=== PATIENT | female | born 1950 | race Native Hawaiian/Other Pacific Islander ===

== ENCOUNTER 2017-04-18 12:42 | Inpatient (IN) | payer BC, MEDICARE ==
--- NOTE | 2017-04-18 14:54 | C.PDOC ---
History Of Present Illness Patient is a 67 y/o female who presents to the ED with a complaint of epigastric pain to the right and left upper quadrants that began approximately 30 minutes after a hearty brunch. Patient describes pain as burning that radiates up into the esophagus and notes belching and feeling bloated subsequent to brunch. Symptoms have since subsided. Patient denies vomiting but admits to experiencing similar episodes since gallbladder removal 2 years ago; most recent episode was 5 days ago where patient did vomit. Patient takes Omeprazole every morning; last endoscopy was 2 years ago with gallbladder removal. Admits to normal bowel movements every other day and normal stool. Denies fever, URI symptoms, CP, or SOB. Time Seen by Provider: 04/18/17 13:57 Chief Complaint (Nursing): Abdominal Pain History Per: Patient History/Exam Limitations: no limitations Onset/Duration Of Symptoms: Hrs (symptoms began this morning subsequent to eating brunch), Days (Hx of episodes over last 2 years, most recent 5 days ago) Location Of Pain/Discomfort: RUQ, Epigastric, LUQ Radiation Of Pain To:: Other (esophagus) Quality Of Discomfort: Burning Associated Symptoms: Nausea. denies: Fever, Vomiting (most recent episode included vomiting), Chest Pain Last Bowel Movement: Today Recent travel outside of the [place]: No Additional History Per: Patient Past Medical History Reviewed: Historical Data, Nursing Documentation, Vital Signs Vital Signs: Last Vital Signs Temp 97.7 F 04/18/17 12:52 Pulse 64 04/18/17 12:52 Resp 16 04/18/17 12:52 BP 147/72 04/18/17 12:52 Pulse Ox 100 04/18/17 20:26 - Medical History PMH: Anemia, Gastritis, Osteoporosis Surgical History: Cholecystectomy (2 years ago), Endoscopy (2 years ago) - [facility] Procedures INJECT/INFUSE NEC (05/04/14) Family History: States: No Known Family Hx - Social History Hx Alcohol Use: No Hx Substance Use: No - Immunization History Hx Tetanus Toxoid Vaccination: Yes Hx Influenza Vaccination: No Hx Pneumococcal Vaccination: Yes Review Of Systems Constitutional: Negative for: Fever, Chills ENT: Negative for: Nose Discharge, Nose Congestion, Throat Pain Cardiovascular: Negative for: Chest Pain, Palpitations Respiratory: Negative for: Shortness of Breath Gastrointestinal: Positive for: Nausea, Abdominal Pain (epigastric, right and left upper quadrants). Negative for: Vomiting Physical Exam - Physical Exam Appears: Well, Non-toxic, No Acute Distress Skin: Normal Color, Warm, Dry Head: Atraumatic, Normacephalic Oral Mucosa: Moist Chest: Symmetrical Cardiovascular: Rhythm Regular, No Murmur Respiratory: Normal Breath Sounds, No Rales, No Rhonchi, No Stridor Gastrointestinal/Abdominal: Soft, No Tenderness Extremity: Normal ROM (x4) Neurological/Psych: Oriented x3, Normal Speech, Normal Cognition ED Course And Treatment - Laboratory Results Result Diagrams: 04/18/17 15:46 04/18/17 15:46 Lab Interpretation: Abnormal (Elevated LFTs and Bili) O2 Sat by Pulse Oximetry: 100 (room air) Pulse Ox Interpretation: Normal - Radiology CXR: Interpreted by Me, Viewed By Me CXR Interpretation: Yes: No Acute Disease Progress Note: CT scan of abdomen and pelvis ordered.Status post cholecystectomy. Notable amount of biliary air. Correlate with history. Associated biliary. ductal dilatation Reevaluation Time: 20:26 Reassessment Condition: Unchanged - Physician Consult Information Time Consulting Physician Contacted: 20:27 Physician Contacted: Jose Alberto Viveros Outcome Of Conversation: Patient to be admitted for GI evaluation and ERCP Medical Decision Making Medical Decision Making: Plan: EKG, CXR, and blood work ordered. Pepcid administered. Disposition - Disposition Disposition: HOSPITALIZED Disposition Time: 20:27 Condition: STABLE - POA Present On Arrival: None - Clinical Impression Clinical Impression: Abdominal pain, Dilated intrahepatic bile duct - Scribe Statement The provider has reviewed the documentation as recorded by the Scribmarilin Deras All medical record entries made by the Geeibmarilin were at my direction and personally dictated by me. I have reviewed the chart and agree that the record accurately reflects my personal performance of the history, physical exam, medical decision making, and the department course for this patient. I have also personally directed, reviewed, and agree with the discharge instructions and disposition.
--- NOTE | 2017-04-18 15:42 | RAD ---
PROCEDURE: CHEST RADIOGRAPH, 1 VIEW HISTORY: Abdominal pain. COMPARISON: Comparison made with prior chest radiograph dated 09/08/2011 FINDINGS: LUNGS: Clear. PLEURA: No pneumothorax or pleural fluid seen. CARDIOVASCULAR: Normal. OSSEOUS STRUCTURES: No significant abnormalities. VISUALIZED UPPER ABDOMEN: No gross free intraperitoneal air seen under the diaphragmatic surfaces OTHER FINDINGS: None. IMPRESSION: No acute infiltrates.
[2017-04-18 15:54] LABS: BASO % 0.5 % (0.0-2.0); EOS % 0.2 % (0.0-4.0); HEMATOCRIT 36.2 % (34.0-47.0); LYMPH # 0.6 K/uL (1.0-4.3); LYMPH % 6.8 % (20.0-40.0); MEAN CELL VOLUME 90.7 fL (81.0-99.0); MEAN CORPUSCULAR HGB CONC 33.1 g/dL (33.0-37.0); MEAN PLATELET VOLUME 6.8 fL (7.2-11.7); MONO # 0.7 K/uL (0.0-0.8); MONO % 7.6 % (0.0-10.0); PLATELET COUNT 282 K/uL (130-400); RED CELL DISTRIBUTION WIDTH 13.6 % (11.5-14.5); WHITE BLOOD COUNT 8.7 K/uL (4.8-10.8)
[2017-04-18 15:59] LABS: CHLORIDE 102 mmol/L (98-107); POTASSIUM 3.6 mmol/L (3.6-5.2); SODIUM 141 mmol/L (132-148)
[2017-04-18 16:01] LABS: ALB/GLOB RATIO 1.1 (1.0-2.1); AST/SGOT 400 U/L (14-36); BILIRUBIN,TOTAL 1.4 mg/dL (0.2-1.3); CARBON DIOXIDE 30 mmol/L (22-30); GFR AFRICAN-AMERICAN > 60
[2017-04-18 16:02] LABS: ALKALINE PHOSPHATASE 91 U/L (38-126); ALT/SGPT 214 U/L (9-52); BLOOD UREA NITROGEN 11 mg/dL (7-17); CALCIUM 9.3 mg/dl (8.6-10.4); GLUCOSE,RANDOM 79 mg/dL (65-105)
[2017-04-18] MEDS ORDERED: Iohexol 240 (50 ml) PO ONE (16:04)
[2017-04-18] MEDS ORDERED: Iohexol 240 (50 ml) ONE (16:36)
[2017-04-18 17:00] LABS: LARGE PLATELETS PRESENT; NEUTROPHIL 89 % (50-75); TOTAL CELLS COUNTED 100
[2017-04-18] MEDS ORDERED: Iodixanol 320 MG/ML 100 ML BOTTLE IV ONE (18:21)
--- NOTE | 2017-04-18 19:56 | CT ---
EXAM: CT Abdomen and Pelvis With Intravenous Contrast CLINICAL HISTORY: 67 years old, female; Pain; Abdominal pain; Prior surgery; Surgery type: Gall bladder removed; Additional info: Adominal pain with elevated lfts S/P lynnette TECHNIQUE: Axial computed tomography images of the abdomen and pelvis with intravenous contrast. All CT scans at this facility use one or more dose reduction techniques, viz.: automated exposure control; ma/kV adjustment per patient size (including targeted exams where dose is matched to indication; i.e. head); or iterative reconstruction technique. Coronal and sagittal reformatted images were created and reviewed. CONTRAST: 100 mL of [id number] administered intravenously. COMPARISON: No relevant prior studies available. FINDINGS: Status post cholecystectomy. Notable amount of biliary air. Correlate with history. Associated biliary ductal dilatation. The liver, spleen, pancreas and adrenal glands demonstrate no acute abnormalities. The kidneys are symmetric with no evidence of hydronephrosis. Subcentimeter hypoattenuating focus in the left kidney, too small to characterize. Atherosclerosis. Evidence of minimal hiatal hernia. No bowel obstruction. Left colon is collapsed, limiting its evaluation. Areas of apparent bowel wall prominence appear to be due incomplete distention. Minimal inflammation cannot be excluded. Appendix not visualized. Evidence of L3 hemangioma. IMPRESSION: Status post cholecystectomy. Notable amount of biliary air. Correlate with history. Associated biliary ductal dilatation. Please see additional details/findings as above. Some of the above findings may warrant followup evaluation.
--- NOTE | 2017-04-18 22:46 | CP.PCM.HP ---
History of Present Illness - History of Present Illness History of Present Illness: Patient is a 67 y/o female who presents to the ED with a complaint of epigastric pain to the right and left upper quadrants that began approximately 30 minutes after a hearty brunch. Patient describes pain as burning that radiates up into the esophagus and notes belching and feeling bloated subsequent to brunch. Symptoms have since subsided. Patient denies vomiting but admits to experiencing similar episodes since gallbladder removal 2 years ago; most recent episode was 5 days ago where patient did vomit. Patient takes Omeprazole every morning; last endoscopy was 2 years ago with gallbladder removal. Admits to normal bowel movements every other day and normal stool. Denies fever, URI symptoms, CP, or SOB. Present on Admission - Present on Admission Any Indicators Present on Admission: No Past Patient History - Infectious Disease Hx of Infectious Diseases: None - Past Social History Smoking Status: Never Smoked - HEMATOLOGICAL/ONCOLOGICAL Hx Anemia: Yes - MUSCULOSKELETAL/RHEUMATOLOGICAL Hx Osteoporosis: Yes - GASTROINTESTINAL Hx Gastritis: Yes - PSYCHIATRIC Hx Substance Use: No - SURGICAL HISTORY Hx Cholecystectomy: Yes (2 years ago) - ANESTHESIA Hx Anesthesia: Yes Hx Anesthesia Reactions: No Meds Allergies/Adverse Reactions: Allergies Allergy/AdvReac Type Severity Reaction Status Date / Time No Known Allergies Allergy Verified 04/18/17 12:50 Results - Vital Signs Recent Vital Signs: Last Vital Signs Temp 99.0 F 04/18/17 21:49 Pulse 64 04/18/17 21:49 Resp 20 04/18/17 21:49 BP 156/74 H 04/18/17 21:49 Pulse Ox 99 04/18/17 21:49 - Labs Result Diagrams: 04/19/17 09:08 04/19/17 09:08 Labs: Laboratory Results - last 24 hr 04/18/17 04/18/17 15:46 15:46 WBC 8.7 RBC 3.99 Hgb 12.0 Hct 36.2 MCV 90.7 MCH 30.0 MCHC 33.1 RDW 13.6 Plt Count 282 MPV 6.8 L Neut % (Auto) 84.9 H Lymph % (Auto) 6.8 L [place] % (Auto) 7.6 Eos % (Auto) 0.2 Baso % (Auto) 0.5 Neut # 7.4 H Lymph # 0.6 L [place] # 0.7 Eos # 0.0 Baso # 0.0 Neutrophils % (Manual) 89 H Lymphocytes % (Manual) 8 L Monocytes % (Manual) 3 Platelet Estimate Normal Large Platelets Present Sodium 141 Potassium 3.6 Chloride 102 Carbon Dioxide 30 Anion Gap 13 BUN 11 Creatinine 0.5 L Est GFR ( Amer) > 60 Est GFR (Non-Af Amer) > 60 Random Glucose 79 Calcium 9.3 Total Bilirubin 1.4 H AST 400 H ALT 214 H Alkaline Phosphatase 91 Troponin I < 0.0120 Total Protein 8.0 Albumin 4.2 Globulin 3.8 Albumin/Globulin Ratio 1.1 Lipase 241
[2017-04-18] MEDS: metroNIDAZOLE IV 500 mg/100 ml 500 MG/100 ML BAG IVPB SCH (23:00)
[2017-04-18] MEDS ORDERED: cefTRIAXone IV 1 gm in Dextros 50 ML IVPB SCH (23:00)
[2017-04-18] MEDS: Dextrose 5%/0.45% NS 1,000 ML IV SCH (23:01)
[2017-04-19] MEDS: metroNIDAZOLE IV 500 mg/100 ml 500 MG/100 ML BAG IVPB SCH ×3 (06:15→21:12)
--- NOTE | 2017-04-19 08:17 | CP.PCM.CON ---
<Ariana Lofton - Last Filed: 04/19/17 10:03> History of Present Illness - History of Present Illness History of Present Illness: GI Fellow PGY4 Consult Note This is a 67 y/o female with a pmhx of gastritis on omeprazole 20mg daily, cholecystitis and choledocholithiasis s/p ERCP and cholecystectomy in August 2016. She is now presenting to the ER with complaints of acute onset epigastric pain radiating to RUQ/LUQ that began 60 minutes after eating lunch. Patient describes pain as initially a burning sensation that spread into her throat and mouth with associated belching and bloated. Patient denies vomiting but reports experiencing similar episodes sporadically since cholecystectomy in August. She states that the most recent episode was 5 days ago where patient did vomit. She takes Omeprazole every morning. Pt reports that in August she was in [place], [place] where she had and ERCP done initially for CBD stone followed by cholecystectomy due to cholelithiasis. Pt states her symptoms are better this morning after getting pain medication. Pt reports her face is red and swollen after IV abx, she has received Flagyl so far and denies prior allergies. Denies fever, chills, nausea or vomiting. ROS: A 12pt ROS was obtained and was negative except as above. Pmhx: As stated in HPI PsHx: Cholecystectomy and ERCP in August 2016. FHx: liver disease from etoh in brother SHx: Denies alcohol, tobacco, or illict drug use Past Patient History - Infectious Disease Hx of Infectious Diseases: None - Past Medical History & Family History Past Medical History?: Yes - Past Social History Smoking Status: Never Smoked - CARDIAC Hx Cardiac Disorders: No - PULMONARY Hx Respiratory Disorders: No - NEUROLOGICAL Hx Neurological Disorder: No - HEENT Hx HEENT Problems: No - RENAL Hx Chronic Kidney Disease: No - ENDOCRINE/METABOLIC Hx Endocrine Disorders: No - HEMATOLOGICAL/ONCOLOGICAL Hx Blood Disorders: Yes Hx Anemia: Yes - INTEGUMENTARY Hx Dermatological Problems: No - MUSCULOSKELETAL/RHEUMATOLOGICAL Hx Falls: No - GASTROINTESTINAL Hx Gastrointestinal Disorders: Yes Hx Gall Bladder Disease: Yes Hx Gastritis: Yes - GENITOURINARY/GYNECOLOGICAL Hx Genitourinary Disorders: No - PSYCHIATRIC Hx Substance Use: No - SURGICAL HISTORY Hx Surgeries: Yes Hx Cholecystectomy: Yes (2 years ago) Other/Comment: Cesarian x1 - ANESTHESIA Hx Anesthesia: Yes Hx Anesthesia Reactions: No Hx Malignant Hyperthermia: No Has any member of the family had a problem w/ anesthesia?: No Meds Allergies/Adverse Reactions: Allergies Allergy/AdvReac Type Severity Reaction Status Date / Time No Known Allergies Allergy Verified 04/18/17 12:50 - Medications Medications: Current Medications Enoxaparin Sodium (Lovenox) 40 mg SC DAILY [facility] Famotidine (Pepcid) 20 mg IVP Q12 [facility] Dextrose/Sodium Chloride (Dextrose 5%/0.45% Ns 1000 Ml) 1,000 mls @ 90 mls/hr IV .Q11H7M [facility] Last Admin: 04/18/17 23:01 Dose: 90 mls/hr Metronidazole (Flagyl) 500 mg in 100 mls @ 100 mls/hr IVPB Q8 [facility] Last Admin: 04/19/17 06:15 Dose: 100 mls/hr Ceftriaxone Sodium (Rocephin Iv 1 Gm Duplex) 50 mls @ 100 mls/hr IVPB Q24H [facility] Last Admin: 04/18/17 23:01 Dose: 100 mls/hr Morphine Sulfate (Morphine) 2 mg SC Q4H PRN PRN Reason: Pain, moderate (4-7) Physical Exam - Constitutional Appears: Non-toxic, No Acute Distress - Head Exam Head Exam: ATRAUMATIC, NORMAL INSPECTION, NORMOCEPHALIC - Eye Exam Eye Exam: EOMI, Normal appearance, PERRL Pupil Exam: PERRL - ENT Exam ENT Exam: Mucous Membranes Moist, Normal Exam - Neck Exam Neck exam: Positive for: Normal Inspection - Respiratory Exam Respiratory Exam: Clear to Auscultation Bilateral, NORMAL BREATHING PATTERN - Cardiovascular Exam Cardiovascular Exam: RRR, +S1, +S2 - GI/Abdominal Exam GI & Abdominal Exam: Normal Bowel Sounds, Soft. absent: Distended, Organomegaly , Tenderness - Rectal Exam Rectal Exam: Deferred - Extremities Exam Extremities exam: Positive for: full ROM, normal inspection - Back Exam Back exam: NORMAL INSPECTION - Neurological Exam Neurological exam: Alert, Oriented x3 - Psychiatric Exam Psychiatric exam: Normal Mood - Skin Skin Exam: Dry, Erythema, Intact, Rash, Warm Additional comments: Pt's face is red and slightly swollen with rash on chest Results - Vital Signs Recent Vital Signs: Last Vital Signs Temp 99.1 F 04/18/17 23:49 Pulse 68 04/18/17 23:49 Resp 20 10/21/17 23:49 BP 132/71 04/18/17 23:49 Pulse Ox 98 04/18/17 23:49 - Labs Result Diagrams: 04/19/17 09:08 04/19/17 09:08 Labs: Laboratory Results - last 24 hr 04/18/17 04/18/17 15:46 15:46 WBC 8.7 RBC 3.99 Hgb 12.0 Hct 36.2 MCV 90.7 MCH 30.0 MCHC 33.1 RDW 13.6 Plt Count 282 MPV 6.8 L Neut % (Auto) 84.9 H Lymph % (Auto) 6.8 L [place] % (Auto) 7.6 Eos % (Auto) 0.2 Baso % (Auto) 0.5 Neut # 7.4 H Lymph # 0.6 L [place] # 0.7 Eos # 0.0 Baso # 0.0 Neutrophils % (Manual) 89 H Lymphocytes % (Manual) 8 L Monocytes % (Manual) 3 Platelet Estimate Normal Large Platelets Present Sodium 141 Potassium 3.6 Chloride 102 Carbon Dioxide 30 Anion Gap 13 BUN 11 Creatinine 0.5 L Est GFR ( Amer) > 60 Est GFR (Non-Af Amer) > 60 Random Glucose 79 Calcium 9.3 Total Bilirubin 1.4 H AST 400 H ALT 214 H Alkaline Phosphatase 91 Troponin I < 0.0120 Total Protein 8.0 Albumin 4.2 Globulin 3.8 Albumin/Globulin Ratio 1.1 Lipase 241 Assessment & Plan - Assessment and Plan (Free Text) Assessment: This is a 67yF presenting with sudden onset of abdominal pain after food consumption. 1. Transaminitis 2. Abdominal pain 3. s/p Cholecystectomy in August 4. s/p ERCP for reported choledocholithiasis Plan: -Continue supportive care with anti-emetics, pain control -Elevated LFTs will order Hepatitis panel and autoimmune workup -CTA/P mentions CBD dilation/pneumobilia which is common after recent ERCP/ cholecystectomy -Concern for possible CBD sludge vs stone, plan for EUS +/- ERCP tomorrow -Discussed procedure with pt who is agreeable and understands risks/benefits -Clear liquid diet today -NPO after midnight -Recommend stopping antibiotics as pt is afebrile, denies fevers, chills and no leukocytes on admission, also pt has developed a rash and maybe allergic to abx therapy -Monitor LFTs -Will continue to follow pt closely <Gera Madden - Last Filed: 04/19/17 15:45> Meds - Medications Medications: Current Medications Enoxaparin Sodium (Lovenox) 40 mg SC DAILY [facility] Last Admin: 04/19/17 10:27 Dose: 40 mg Famotidine (Pepcid) 20 mg IVP Q12 [facility] Last Admin: 04/19/17 10:27 Dose: 20 mg Dextrose/Sodium Chloride (Dextrose 5%/0.45% Ns 1000 Ml) 1,000 mls @ 90 mls/hr IV .Q11H7M [facility] Last Admin: 04/19/17 10:01 Dose: 90 mls/hr Metronidazole (Flagyl) 500 mg in 100 mls @ 100 mls/hr IVPB Q8 [facility] Last Admin: 04/19/17 14:00 Dose: 100 mls/hr Aztreonam 2 gm/ Sodium (Chloride) 100 mls @ 200 mls/hr IVPB Q8H [facility] Morphine Sulfate (Morphine) 2 mg SC Q4H PRN PRN Reason: Pain, moderate (4-7) Results - Vital Signs Recent Vital Signs: Last Vital Signs Temp 98.7 F 04/19/17 12:35 Pulse 69 04/19/17 09:23 Resp 20 04/19/17 09:23 BP 114/60 04/19/17 09:23 Pulse Ox 97 04/19/17 09:23 - Labs Result Diagrams: 04/19/17 09:08 04/19/17 09:08 Labs: Laboratory Results - last 24 hr 04/18/17 04/18/17 04/19/17 15:46 15:46 09:08 WBC 8.7 4.3 L D RBC 3.99 3.93 Hgb 12.0 12.0 Hct 36.2 36.2 MCV 90.7 91.9 MCH 30.0 30.4 MCHC 33.1 33.1 RDW 13.6 13.3 Plt Count 282 286 MPV 6.8 L 7.0 L Neut % (Auto) 84.9 H Lymph % (Auto) 6.8 L [place] % (Auto) 7.6 Eos % (Auto) 0.2 Baso % (Auto) 0.5 Neut # 7.4 H Lymph # 0.6 L [place] # 0.7 Eos # 0.0 Baso # 0.0 Neutrophils % (Manual) 89 H Lymphocytes % (Manual) 8 L Monocytes % (Manual) 3 Platelet Estimate Normal Large Platelets Present PT INR Sodium 141 Potassium 3.6 Chloride 102 Carbon Dioxide 30 Anion Gap 13 BUN 11 Creatinine 0.5 L Est GFR ( Amer) > 60 Est GFR (Non-Af Amer) > 60 Random Glucose 79 Calcium 9.3 Iron TIBC % Saturation Total Bilirubin 1.4 H AST 400 H ALT 214 H Alkaline Phosphatase 91 Troponin I < 0.0120 Total Protein 8.0 Albumin 4.2 Globulin 3.8 Albumin/Globulin Ratio 1.1 Lipase 241 IgG 04/19/17 04/19/17 04/19/17 09:08 09:08 09:08 WBC RBC Hgb Hct MCV MCH MCHC RDW Plt Count MPV Neut % (Auto) Lymph % (Auto) [place] % (Auto) Eos % (Auto) Baso % (Auto) Neut # Lymph # [place] # Eos # Baso # Neutrophils % (Manual) Lymphocytes % (Manual) Monocytes % (Manual) Platelet Estimate Large Platelets PT 12.0 INR 1.1 Sodium 136 Potassium 3.9 Chloride 102 Carbon Dioxide 25 Anion Gap 13 BUN 7 Creatinine 0.5 L Est GFR ( Amer) > 60 Est GFR (Non-Af Amer) > 60 Random Glucose 95 Calcium 8.8 Iron 144 TIBC 281 % Saturation 51 Total Bilirubin 1.7 H AST 557 H D ALT 474 H D Alkaline Phosphatase 114 Troponin I Total Protein 6.6 Albumin 4.0 Globulin 2.6 Albumin/Globulin Ratio 1.6 Lipase IgG 04/19/17 04/19/17 09:08 09:08 WBC RBC Hgb Hct MCV MCH MCHC RDW Plt Count MPV Neut % (Auto) Lymph % (Auto) [place] % (Auto) Eos % (Auto) Baso % (Auto) Neut # Lymph # [place] # Eos # Baso # Neutrophils % (Manual) Lymphocytes % (Manual) Monocytes % (Manual) Platelet Estimate Large Platelets PT INR Sodium Potassium Chloride Carbon Dioxide Anion Gap BUN Creatinine Est GFR ( Amer) Est GFR (Non-Af Amer) Random Glucose Calcium Iron TIBC % Saturation 51 Total Bilirubin AST ALT Alkaline Phosphatase Troponin I Total Protein Albumin Globulin Albumin/Globulin Ratio Lipase IgG 1153.6 Attending/Attestation - Attestation I have personally seen and examined this patient.: Yes I have fully participated in the care of the patient.: Yes I have reviewed all pertinent clinical information: Yes Notes (Text): 04/19/17 15:44 67 year old female with h/o recent cholecystectomy, h/o choledocholithiais presenting with abdominal pain and elevated lfts along with biliary dilation. 1. Abdominal pain 2. Elevated LFTs 3. Dilation of the common bile duct Plan: -suspect retained CBD stone -recommend EUS +/- ERCP tomorrow -NPO after MN -no signs/sx of cholangitis -recommend eval for other causes of abnormal LFTs as above
[2017-04-19 09:13] LABS: HEMATOCRIT 36.2 % (34.0-47.0); MEAN CELL VOLUME 91.9 fL (81.0-99.0); MEAN CORPUSCULAR HEMOGLOBIN 30.4 pg (27.0-31.0); MEAN CORPUSCULAR HGB CONC 33.1 g/dL (33.0-37.0); RED CELL DISTRIBUTION WIDTH 13.3 % (11.5-14.5)
[2017-04-19 09:17] LABS: WHITE BLOOD COUNT 4.3 K/uL (4.8-10.8)
[2017-04-19 09:19] LABS: INR 1.1
[2017-04-19 09:27] LABS: CHLORIDE 102 mmol/L (98-107); SODIUM 136 mmol/L (132-148)
[2017-04-19 09:28] LABS: POTASSIUM 3.9 mmol/L (3.6-5.2)
[2017-04-19 09:30] LABS: ALB/GLOB RATIO 1.6 (1.0-2.1); ALKALINE PHOSPHATASE 114 U/L (38-126); ALT/SGPT 474 U/L (9-52); AST/SGOT 557 U/L (14-36); BILIRUBIN,TOTAL 1.7 mg/dL (0.2-1.3); BLOOD UREA NITROGEN 7 mg/dL (7-17); CARBON DIOXIDE 25 mmol/L (22-30); GFR AFRICAN-AMERICAN > 60; GLUCOSE,RANDOM 95 mg/dL (65-105); TOTAL PROTEIN 6.6 g/dL (6.3-8.3)
[2017-04-19 09:31] LABS: CALCIUM 8.8 mg/dl (8.6-10.4)
[2017-04-19 09:35] LABS: IRON 144 ug/dL (37-170)
[2017-04-19] MEDS: Dextrose 5%/0.45% NS 1,000 ML IV SCH ×2 (10:01→21:12)
[2017-04-19] MEDS: Enoxaparin 40 mg Syringe SC SCH (10:27)
[2017-04-19] MEDS: Aztreonam 2 GM in Sodium Chloride 0.9% 100 ML IVPB SCH (16:46)
--- NOTE | 2017-04-19 20:58 | CP.PCM.PN ---
Subjective - Date & Time of Evaluation Date of Evaluation: 04/19/17 Time of Evaluation: 15:15 - Subjective Subjective: Pt states her abdominal pain is better this morning after getting pain medication. Pt reports her face is red and swollen after IV abx, she has received Flagyl so far and denies prior allergies. Denies fever, chills, nausea or vomiting. Objective - Vital Signs/Intake and Output Vital Signs (last 24 hours): Temp Pulse Resp BP Pulse Ox 98.6 F 61 20 118/66 98 04/19/17 15:00 04/19/17 15:00 04/19/17 15:00 04/19/17 15:00 04/19/17 15:00 Intake and Output: 04/19/17 04/20/17 18:59 06:59 Intake Total 1100 Balance 1100 - Medications Medications: Current Medications Enoxaparin Sodium (Lovenox) 40 mg SC DAILY [facility] Last Admin: 04/19/17 10:27 Dose: 40 mg Famotidine (Pepcid) 20 mg IVP Q12 [facility] Last Admin: 04/19/17 10:27 Dose: 20 mg Dextrose/Sodium Chloride (Dextrose 5%/0.45% Ns 1000 Ml) 1,000 mls @ 90 mls/hr IV .Q11H7M [facility] Last Admin: 04/19/17 10:01 Dose: 90 mls/hr Metronidazole (Flagyl) 500 mg in 100 mls @ 100 mls/hr IVPB Q8 [facility] Last Admin: 04/19/17 14:00 Dose: 100 mls/hr Aztreonam 2 gm/ Sodium (Chloride) 100 mls @ 200 mls/hr IVPB Q8H [facility] Last Admin: 04/19/17 16:46 Dose: 200 mls/hr Morphine Sulfate (Morphine) 2 mg SC Q4H PRN PRN Reason: Pain, moderate (4-7) - Labs Labs: 04/19/17 09:08 04/19/17 09:08 PT 12.0 SECONDS (9.7-12.2) 04/19/17 09:08 INR 1.1 04/19/17 09:08 - Constitutional Appears: No Acute Distress - Head Exam Head Exam: ATRAUMATIC, NORMAL INSPECTION, NORMOCEPHALIC - Eye Exam Eye Exam: EOMI, Normal appearance, PERRL Pupil Exam: NORMAL ACCOMODATION, PERRL - Respiratory Exam Respiratory Exam: Clear to Ausculation Bilateral, NORMAL BREATHING PATTERN - Cardiovascular Exam Cardiovascular Exam: REGULAR RHYTHM, +S1, +S2. absent: Murmur - GI/Abdominal Exam GI & Abdominal Exam: Soft, Normal Bowel Sounds. absent: Tenderness - Rectal Exam Rectal Exam: Deferred Assessment and Plan (1) Choledochitis Status: Acute (2) Abdominal pain Status: Acute (3) Dilated intrahepatic bile duct Status: Acute - Assessment and Plan (Free Text) Assessment: 67 year old female with h/o recent cholecystectomy, h/o choledocholithiais presenting with abdominal pain and elevated lfts along with biliary dilation. 1. Abdominal pain 2. Elevated LFTs 3. Dilation of the common bile duct Plan: -suspect retained CBD stone -recommend EUS +/- ERCP tomorrow -NPO after MN -no signs/sx of cholangitis -recommend eval for other causes of abnormal LFTs as above
[2017-04-20] MEDS: Aztreonam 2 GM in Sodium Chloride 0.9% 100 ML IVPB SCH ×3 (00:01→16:20)
[2017-04-20] MEDS ORDERED: DiphenhydrAMINE 50 mg/ml Inj IVP ONE (06:12)
[2017-04-20] MEDS: Dextrose 5%/0.45% NS 1,000 ML IV SCH ×2 (06:38→18:57)
[2017-04-20] MEDS: metroNIDAZOLE IV 500 mg/100 ml 500 MG/100 ML BAG IVPB SCH ×3 (06:39→21:27)
[2017-04-20 07:24] LABS: HEMATOCRIT 36.8 % (34.0-47.0); MEAN CELL VOLUME 91.3 fL (81.0-99.0); MEAN CORPUSCULAR HEMOGLOBIN 30.1 pg (27.0-31.0); MEAN PLATELET VOLUME 7.5 fL (7.2-11.7); RED CELL DISTRIBUTION WIDTH 13.2 % (11.5-14.5); WHITE BLOOD COUNT 3.1 K/uL (4.8-10.8)
[2017-04-20 07:35] LABS: INR 1.1
[2017-04-20 07:49] LABS: CHLORIDE 104 mmol/L (98-107); SODIUM 135 mmol/L (132-148)
[2017-04-20 07:50] LABS: POTASSIUM 3.4 mmol/L (3.6-5.2)
[2017-04-20 07:52] LABS: ALB/GLOB RATIO 1.5 (1.0-2.1); ALKALINE PHOSPHATASE 115 U/L (38-126); ALT/SGPT 359 U/L (9-52); AST/SGOT 222 U/L (14-36); BILIRUBIN,TOTAL 1.3 mg/dL (0.2-1.3); BLOOD UREA NITROGEN 6 mg/dL (7-17); CARBON DIOXIDE 22 mmol/L (22-30); GFR AFRICAN-AMERICAN > 60; GLUCOSE,RANDOM 88 mg/dL (65-105); TOTAL PROTEIN 6.1 g/dL (6.3-8.3)
[2017-04-20 07:53] LABS: CALCIUM 8.5 mg/dl (8.6-10.4)
[2017-04-20] MEDS ORDERED: Potassium Chloride 10 mEq ER Tab PO STA (08:46)
[2017-04-20] MEDS: Enoxaparin 40 mg Syringe SC SCH (09:12)
[2017-04-20] MEDS ORDERED: Indomethacin 50 MG Suppository PR ONE (11:55)
[2017-04-20] MEDS ORDERED: Propofol 10 mg/ml Inj (20 ML) ONE (11:56)
[2017-04-20] MEDS ORDERED: Rocuronium 10 mg/ml (5 ml) ONE (12:11)
[2017-04-20] MEDS ORDERED: Neostigmine Methylsulfate 3mg/3ml Syringe IV ONE (12:41)
--- NOTE | 2017-04-20 12:53 | CARD ---
APPROVED REPORT EKG Measurement Heart [id number] IL 178P-7 [id number] <Conclusion> Normal sinus rhythm Normal ECG
[2017-04-20 16:24] VITALS: RESP 20
--- NOTE | 2017-04-20 16:40 | RAD ---
PROCEDURE: Intraoperative fluoroscopy HISTORY: CVD STONE COMPARISON: Not available TECHNIQUE: Intraoperative fluoroscopy was provided for ERCP examination. Total time of fluoroscopy is 124.0 seconds. FINDINGS: Multiple fluoroscopic spot films are submitted. Films are on file for review. Films demonstrate dilatation of the intra and extra hepatic biliary tract. Multiple filling defects are identified within the common bile duct, possibly air bubbles. IMPRESSION: Fluoroscopy provided.
[2017-04-20] MEDS ORDERED: Moxifloxacin IV 400mg/250ml NS 400 MG/250 ML BAG IVPB SCH (19:45)
--- NOTE | 2017-04-20 23:01 | CP.PCM.PN ---
Subjective - Date & Time of Evaluation Date of Evaluation: 04/20/17 Time of Evaluation: 19:40 - Subjective Subjective: Pt seen and examined by me today s/p endoscopy, pt had another allergic reaction to azectam c/o epigastric abdominal pain Objective - Vital Signs/Intake and Output Vital Signs (last 24 hours): Temp Pulse Resp BP Pulse Ox 98.2 F 55 L 20 160/74 H 99 04/20/17 15:00 04/20/17 15:00 04/20/17 15:00 04/20/17 15:00 04/20/17 15:00 Intake and Output: 04/20/17 04/21/17 18:59 06:59 Intake Total 1590 Balance 1590 - Medications Medications: Current Medications Enoxaparin Sodium (Lovenox) 40 mg SC DAILY [facility] Last Admin: 04/20/17 09:12 Dose: Not Given Famotidine (Pepcid) 20 mg IVP Q12 [facility] Last Admin: 04/20/17 21:27 Dose: 20 mg Dextrose/Sodium Chloride (Dextrose 5%/0.45% Ns 1000 Ml) 1,000 mls @ 90 mls/hr IV .Q11H7M [facility] Last Admin: 04/20/17 18:57 Dose: Not Given Metronidazole (Flagyl) 500 mg in 100 mls @ 100 mls/hr IVPB Q8 [facility] Last Admin: 04/20/17 21:27 Dose: 100 mls/hr Moxifloxacin HCl (Avelox Iv 400mg/250ml Ns) 400 mg in 250 mls @ 167 mls/hr IVPB Q24H [facility] Morphine Sulfate (Morphine) 2 mg SC Q4H PRN PRN Reason: Pain, moderate (4-7) - Labs Labs: 04/20/17 07:16 04/20/17 07:16 PT 12.6 SECONDS (9.7-12.2) H 04/20/17 07:16 INR 1.1 04/20/17 07:16 - Constitutional Appears: No Acute Distress - Head Exam Head Exam: ATRAUMATIC, NORMAL INSPECTION, NORMOCEPHALIC - Eye Exam Eye Exam: EOMI, Normal appearance, PERRL Pupil Exam: NORMAL ACCOMODATION, PERRL - Respiratory Exam Respiratory Exam: Clear to Ausculation Bilateral, NORMAL BREATHING PATTERN - Cardiovascular Exam Cardiovascular Exam: REGULAR RHYTHM, +S1, +S2. absent: Murmur - GI/Abdominal Exam GI & Abdominal Exam: Tenderness Assessment and Plan (1) Choledochitis Status: Acute (2) Abdominal pain Status: Acute (3) Dilated intrahepatic bile duct Status: Acute
[2017-04-21] MEDS: metroNIDAZOLE IV 500 mg/100 ml 500 MG/100 ML BAG IVPB SCH ×2 (06:12→13:50)
[2017-04-21] MEDS: Dextrose 5%/0.45% NS 1,000 ML IV SCH (06:29)
--- NOTE | 2017-04-21 09:11 | CP.PCM.PN ---
<NEERAJ RASHEED - Last Filed: 04/21/17 09:36> Subjective - Date & Time of Evaluation Date of Evaluation: 04/21/17 Time of Evaluation: 07:30 - Subjective Subjective: Neeraj Rasheed DO PGY1 - GI Progress Note for Dr. Garcia Patient seen and examined at bedside. No events overnight. Patient is s/p EUS showing 15mm dilation of CBD with gallstones and sludge, and subsequent ERCP with extension sphincterotomy and extraction of biliary stones and sludge yesterday. Patient now denies any abdominal pain, n/v, hematochezia, melena; reports normal appetite, requesting us to advance her diet. She has been passing flatus, but has not had a BM since the procedure; she normally has one BM every 1-2 days. 12 point ROS negative, except as above Objective - Vital Signs/Intake and Output Vital Signs (last 24 hours): Temp Pulse Resp BP Pulse Ox 98.8 F 63 20 95/60 L 97 04/21/17 08:16 04/21/17 08:16 04/21/17 08:16 04/21/17 08:16 04/21/17 08:16 Intake and Output: 04/21/17 04/21/17 06:59 18:59 Intake Total 1880 Balance 1880 - Medications Medications: Current Medications Enoxaparin Sodium (Lovenox) 40 mg SC DAILY [facility] Last Admin: 04/20/17 09:12 Dose: Not Given Famotidine (Pepcid) 20 mg IVP Q12 [facility] Last Admin: 04/20/17 21:27 Dose: 20 mg Dextrose/Sodium Chloride (Dextrose 5%/0.45% Ns 1000 Ml) 1,000 mls @ 90 mls/hr IV .Q11H7M [facility] Last Admin: 04/21/17 06:29 Dose: Not Given Metronidazole (Flagyl) 500 mg in 100 mls @ 100 mls/hr IVPB Q8 [facility] Last Admin: 04/21/17 06:12 Dose: 100 mls/hr Moxifloxacin HCl (Avelox Iv 400mg/250ml Ns) 400 mg in 250 mls @ 167 mls/hr IVPB Q24H [facility] Morphine Sulfate (Morphine) 2 mg SC Q4H PRN PRN Reason: Pain, moderate (4-7) - Labs Labs: 04/20/17 07:16 04/20/17 07:16 PT 12.6 SECONDS (9.7-12.2) H 04/20/17 07:16 INR 1.1 04/20/17 07:16 - Constitutional Appears: Non-toxic, No Acute Distress - Head Exam Head Exam: ATRAUMATIC, NORMOCEPHALIC - Eye Exam Eye Exam: EOMI, Normal appearance - ENT Exam ENT Exam: Mucous Membranes Moist - Neck Exam Neck Exam: Full ROM, Normal Inspection - Respiratory Exam Respiratory Exam: Clear to Ausculation Bilateral. absent: Rales, Rhonchi, Wheezes - Cardiovascular Exam Cardiovascular Exam: RRR, +S1, +S2 - GI/Abdominal Exam GI & Abdominal Exam: Soft, Normal Bowel Sounds. absent: Distended, Firm, Guarding, Rigid, Tenderness, Mass, Organomegaly, Rebound - Extremities Exam Extremities Exam: absent: Calf Tenderness, Pedal Edema - Neurological Exam Neurological Exam: Alert, Awake, Oriented x3 - Psychiatric Exam Psychiatric exam: Normal Affect, Normal Mood - Skin Skin Exam: Dry, Intact Assessment and Plan - Assessment and Plan (Free Text) Assessment: This is a 67yF presenting with sudden onset of abdominal pain after food consumption 2/2 choledocholithiasis without cholangitis. Now s/p EUS and ERCP Plan 1. Transaminitis - likely 2/2 to choledocholithiasis - Hepatitis panel negative; autoimmune workup negative so far, pending antimicrosomal antibody - Continues to trend down today - Recommend outpatient follow up with primary to continue to trend LFTs 2. Abdominal pain 2/2 choledocholithiasis s/p ERCP and cholecystectomy in 08/2016 - Now s/p EUS showing 15mm dilation of CBD with gallstones and sludge, and subsequent ERCP with extension sphincterotomy and extraction of biliary stones and sludge yesterday - Patient no longer having abdominal pain, tolerating PO, reports normal appetite, passing flatus; no BM yet, but patient typically has BM every 1-2 days - No stent placed; patient does not require prophylactic Abx - No abdominal tenderness, nausea, diarrhea, abdominal pain, and has normal appetite; no signs/symptoms of cholangitis or acute pancreatitis - Will advance diet as tolerated - Patient may be discharged to home with follow up with PCP in 2-3 weeks; discussed low fat diet 3. s/p Cholecystectomy in August 30. s/p ERCP for reported choledocholithiasis 5. UTI - Patient had reactions to multiple Abx - Currently on IV Abx per primary Patient seen, discussed, and reviewed with attending <Flip Garcia - Last Filed: 04/21/17 14:09> Objective - Vital Signs/Intake and Output Vital Signs (last 24 hours): Temp Pulse Resp BP Pulse Ox 98.8 F 63 20 95/60 L 97 04/21/17 08:16 04/21/17 08:16 04/21/17 08:16 04/21/17 08:16 04/21/17 08:16 Intake and Output: 04/21/17 04/21/17 06:59 18:59 Intake Total 1880 Balance 1880 - Medications Medications: Current Medications Enoxaparin Sodium (Lovenox) 40 mg SC DAILY [facility] Last Admin: 04/21/17 09:50 Dose: 40 mg Famotidine (Pepcid) 20 mg IVP Q12 [facility] Last Admin: 04/21/17 09:48 Dose: 20 mg Dextrose/Sodium Chloride (Dextrose 5%/0.45% Ns 1000 Ml) 1,000 mls @ 90 mls/hr IV .Q11H7M [facility] Last Admin: 04/21/17 06:29 Dose: Not Given Metronidazole (Flagyl) 500 mg in 100 mls @ 100 mls/hr IVPB Q8 [facility] Last Admin: 04/21/17 13:50 Dose: 100 mls/hr Moxifloxacin HCl (Avelox Iv 400mg/250ml Ns) 400 mg in 250 mls @ 167 mls/hr IVPB Q24H [facility] Morphine Sulfate (Morphine) 2 mg SC Q4H PRN PRN Reason: Pain, moderate (4-7) Pneumococcal Polyvalent Vaccine (Pneumovax 23 Vaccine) 0.5 ml IM .ONCE ONE Stop: 04/21/17 14:03 Potassium Chloride (K-Dur 20 Meq Er Tab) 40 meq PO ONCE ONE Stop: 04/22/17 12:01 - Labs Labs: 04/21/17 10:35 04/21/17 10:35 PT 12.6 SECONDS (9.7-12.2) H 04/20/17 07:16 INR 1.1 04/20/17 07:16 Attending/Attestation - Attestation I have personally seen and examined this patient.: Yes I have fully participated in the care of the patient.: Yes I have reviewed all pertinent clinical information, including history, physical exam and plan: Yes Notes (Text): 04/21/17 14:06 I have seen and examined patient with 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 No acute events overnight, she denies abdominal pain, nausea, vomiting, fever/chills. Tolerating PO liquids without difficulty. Abdominal pain Transaminitis Choledocholithiasis - s/p ERCP with sphincterotomy and stone extraction UTI - Advance diet as tolerated - LFTs trending down, continue to monitor. Viral hepatitis and autoimmune panels negative. - Continue with antibiotic therapy as per medical team - If patient tolerating PO diet, from GI standpoint ok to discharge home with subsequent outpatient follow up. Will sign off case, please reconsult as necessary, thank you. Discussed with Dr. Viveros.
[2017-04-21] MEDS: Enoxaparin 40 mg Syringe SC SCH (09:50)
[2017-04-21] MEDS ORDERED: POLYETHYLENE GLYCOL 3350 17 GM/Dose PACKET PO SCH (10:30)
[2017-04-21 10:48] LABS: BASO % 0.1 % (0.0-2.0); EOS # 0.1 K/uL (0.0-0.7); EOS % 3.2 % (0.0-4.0); HEMATOCRIT 34.4 % (34.0-47.0); LYMPH # 0.5 K/uL (1.0-4.3); MEAN CELL VOLUME 91.8 fL (81.0-99.0); MEAN CORPUSCULAR HEMOGLOBIN 30.6 pg (27.0-31.0); MEAN CORPUSCULAR HGB CONC 33.3 g/dL (33.0-37.0); MEAN PLATELET VOLUME 7.4 fL (7.2-11.7); MONO # 0.3 K/uL (0.0-0.8); NRBC % 0.1 % (0.0-2.0); RED CELL DISTRIBUTION WIDTH 13.5 % (11.5-14.5)
[2017-04-21 10:49] LABS: WHITE BLOOD COUNT 4.7 K/uL (4.8-10.8)
[2017-04-21 10:57] LABS: CHLORIDE 102 mmol/L (98-107); POTASSIUM 3.4 mmol/L (3.6-5.2); SODIUM 134 mmol/L (132-148)
[2017-04-21 10:59] LABS: AST/SGOT 172 U/L (14-36); BILIRUBIN,TOTAL 2.6 mg/dL (0.2-1.3); CARBON DIOXIDE 24 mmol/L (22-30); GFR AFRICAN-AMERICAN > 60
[2017-04-21 11:00] LABS: ALKALINE PHOSPHATASE 139 U/L (38-126); ALT/SGPT 299 U/L (9-52); BLOOD UREA NITROGEN 6 mg/dL (7-17); CALCIUM 8.7 mg/dl (8.6-10.4); GLUCOSE,RANDOM 91 mg/dL (65-105); TOTAL PROTEIN 6.9 g/dL (6.3-8.3)
--- NOTE | 2017-04-21 13:26 | CP.PCM.PN ---
Subjective - Date & Time of Evaluation Date of Evaluation: 04/21/17 Time of Evaluation: 13:23 - Subjective Subjective: PATIENT IS SITTING AT HE BED SIDE EATING LUNG AND DENIES ANY ABD PAIN, N/V Objective - Vital Signs/Intake and Output Vital Signs (last 24 hours): Temp Pulse Resp BP Pulse Ox 98.8 F 63 20 95/60 L 97 04/21/17 08:16 04/21/17 08:16 04/21/17 08:16 04/21/17 08:16 04/21/17 08:16 Intake and Output: 04/21/17 04/21/17 06:59 18:59 Intake Total 1880 Balance 1880 - Medications Medications: Current Medications Enoxaparin Sodium (Lovenox) 40 mg SC DAILY [facility] Last Admin: 04/21/17 09:50 Dose: 40 mg Famotidine (Pepcid) 20 mg IVP Q12 [facility] Last Admin: 04/21/17 09:48 Dose: 20 mg Dextrose/Sodium Chloride (Dextrose 5%/0.45% Ns 1000 Ml) 1,000 mls @ 90 mls/hr IV .Q11H7M [facility] Last Admin: 04/21/17 06:29 Dose: Not Given Metronidazole (Flagyl) 500 mg in 100 mls @ 100 mls/hr IVPB Q8 [facility] Last Admin: 04/21/17 06:12 Dose: 100 mls/hr Moxifloxacin HCl (Avelox Iv 400mg/250ml Ns) 400 mg in 250 mls @ 167 mls/hr IVPB Q24H [facility] Morphine Sulfate (Morphine) 2 mg SC Q4H PRN PRN Reason: Pain, moderate (4-7) Potassium Chloride (K-Dur 20 Meq Er Tab) 40 meq PO ONCE ONE Stop: 04/22/17 12:01 - Labs Labs: 04/21/17 10:35 04/21/17 10:35 PT 12.6 SECONDS (9.7-12.2) H 04/20/17 07:16 INR 1.1 04/20/17 07:16 - Constitutional Appears: Well - Head Exam Head Exam: ATRAUMATIC - Eye Exam Pupil Exam: NORMAL ACCOMODATION, PERRL - Neck Exam Neck Exam: Full ROM - Respiratory Exam Respiratory Exam: Clear to Ausculation Bilateral - Cardiovascular Exam Cardiovascular Exam: REGULAR RHYTHM - GI/Abdominal Exam GI & Abdominal Exam: Normal Bowel Sounds - Rectal Exam Rectal Exam: Deferred - Extremities Exam Extremities Exam: Full ROM - Skin Skin Exam: Normal Color Assessment and Plan - Assessment and Plan (Free Text) Plan: DISCUSSED WITH DR DUNLAP PATIENT IS CLEAR TO GO HOME AND FOLLOW UP WITH HIM IN A WEEK OUT PATIENT FOR LEVER ENZYME AND POST HOSPITAL DISCHARGE ABX PRESCRIPTION GIVEN CIPRO AND FLAGYL FOR 5 DAYS DISCHARGE PLAN DISCUSS WITH PATIENT WHO IS AGREED AND VERBALIZE UNDERSTANDING
[2017-04-21] MEDS ORDERED: Pneumococcal 23-Valent Vaccine IM ONE (15:00)
[2017-04-21] MEDS ORDERED: Influenza Vaccine 60 mcg/0.5 mL SYR (4YR UP) IM ONE (15:00)
[2017-04-21] MEDS ORDERED: Potassium Chloride 20 mEq ER Tab PO ONE (16:15)
[2017-04-21 16:25] VITALS: BP 119/66; PULSE 62; TEMP 98.1; O2SAT 100
[2017-04-21 19:08] LABS: LKM-1 Ab (IgG) <=20.0 U (<=20.0)
--- NOTE | 2017-04-21 22:34 | CP.PCM.DIS ---
Provider - Provider Date of Admission: 04/18/17 20:33 Attending physician: Jose Alberto Viveros MD Time Spent in preparation of Discharge (in minutes): 45 Diagnosis - Discharge Diagnosis (1) Choledochitis Status: Acute (2) Abdominal pain Status: Acute (3) Dilated intrahepatic bile duct Status: Acute Hospital Course - Lab Results Lab Results: Most Recent Lab Values WBC 4.7 K/uL (4.8-10.8) L D 04/21/17 10:35 RBC 3.75 Mil/uL (3.80-5.20) L 04/21/17 10:35 Hgb 11.4 g/dL (11.0-16.0) 04/21/17 10:35 Hct 34.4 % (34.0-47.0) 04/21/17 10:35 MCV 91.8 fL (81.0-99.0) 04/21/17 10:35 MCH 30.6 pg (27.0-31.0) 04/21/17 10:35 MCHC 33.3 g/dL (33.0-37.0) 04/21/17 10:35 RDW 13.5 % (11.5-14.5) 04/21/17 10:35 Plt Count 255 K/uL (130-400) 04/21/17 10:35 MPV 7.4 fL (7.2-11.7) 04/21/17 10:35 Neut % (Auto) 79.7 % (50.0-75.0) H 04/21/17 10:35 Lymph % (Auto) 10.0 % (20.0-40.0) L 04/21/17 10:35 Kendall % (Auto) 7.0 % (0.0-10.0) 04/21/17 10:35 Eos % (Auto) 3.2 % (0.0-4.0) 04/21/17 10:35 Baso % (Auto) 0.1 % (0.0-2.0) 04/21/17 10:35 Neut # 3.8 K/uL (1.8-7.0) 04/21/17 10:35 Lymph # 0.5 K/uL (1.0-4.3) L 04/21/17 10:35 Kendall # 0.3 K/uL (0.0-0.8) 04/21/17 10:35 Eos # 0.1 K/uL (0.0-0.7) 04/21/17 10:35 Baso # 0.0 K/uL (0.0-0.2) 04/21/17 10:35 Neutrophils % (Manual) 89 % (50-75) H 04/18/17 15:46 Lymphocytes % (Manual) 8 % (20-40) L 04/18/17 15:46 Monocytes % (Manual) 3 % (0-10) 04/18/17 15:46 Platelet Estimate Normal (NORMAL) 04/18/17 15:46 Large Platelets Present 04/18/17 15:46 PT 12.6 SECONDS (9.7-12.2) H 04/20/17 07:16 INR 1.1 04/20/17 07:16 Sodium 134 mmol/L (132-148) 04/21/17 10:35 Potassium 3.4 mmol/L (3.6-5.2) L 04/21/17 10:35 Chloride 102 mmol/L (98-107) 04/21/17 10:35 Carbon Dioxide 24 mmol/L (22-30) 04/21/17 10:35 Anion Gap 12 (10-20) 04/21/17 10:35 BUN 6 mg/dL (7-17) L 04/21/17 10:35 Creatinine 0.5 mg/dL (0.7-1.2) L 04/21/17 10:35 Est GFR ( Amer) > 60 04/21/17 10:35 Est GFR (Non-Af Amer) > 60 04/21/17 10:35 Random Glucose 91 mg/dL (65-105) 04/21/17 10:35 Calcium 8.7 mg/dl (8.6-10.4) 04/21/17 10:35 Iron 144 ug/dL (37-170) 04/19/17 09:08 TIBC 281 ug/dL (250-450) 04/19/17 09:08 % Saturation 51 (20-55) 04/19/17 09:08 Total Bilirubin 2.6 mg/dL (0.2-1.3) H 04/21/17 10:35 AST 172 U/L (14-36) H D 04/21/17 10:35 ALT 299 U/L (9-52) H 04/21/17 10:35 Alkaline Phosphatase 139 U/L (38-126) H D 04/21/17 10:35 Troponin I < 0.0120 ng/mL (0.00-0.120) 04/18/17 15:46 Total Protein 6.9 g/dL (6.3-8.3) 04/21/17 10:35 Albumin 3.5 g/dL (3.5-5.0) 04/21/17 10:35 Globulin 3.4 gm/dL (2.2-3.9) 04/21/17 10:35 Albumin/Globulin Ratio 1.0 (1.0-2.1) 04/21/17 10:35 Lipase 241 U/L (23-300) 04/18/17 15:46 IgG 1153.6 mg/dL (700.0-1600.0) 04/19/17 09:08 GOOD 6 Profile Negative (NEGATIVE) 04/19/17 09:08 Anti-Mitochondrial Ab Negative (Negative) 04/19/17 09:08 Anti-Smooth Muscle Ab Negative (Negative) 04/19/17 09:08 Liver/Kid Microsomes Ab <=20.0 U (<=20.0) 04/19/17 09:08 Hepatitis A IgM Ab Negative (NEGATIVE) 04/19/17 09:08 Hep Bs Antigen Negative (NEGATIVE) 04/19/17 09:08 Hep B Core IgM Ab Negative (NEGATIVE) 04/19/17 09:08 Hepatitis C Antibody Negative (NEGATIVE) 04/19/17 09:08 - Hospital Course Hospital Course: pt is seen and evalauted, underwent ERCP with removal of stone and her LFTs are better now, she is for discharge FOLLOW UP WITH me IN A WEEK OUT PATIENT FOR LEVER ENZYME AND POST HOSPITAL DISCHARGE ABX PRESCRIPTION GIVEN CIPRO AND FLAGYL FOR 5 DAYS DISCHARGE PLAN DISCUSS WITH PATIENT WHO IS AGREED AND VERBALIZE UNDERSTANDING Discharge Exam - Head Exam Head Exam: ATRAUMATIC - Eye Exam Eye Exam: EOMI, Normal appearance, PERRL Pupil Exam: NORMAL ACCOMODATION, PERRL - ENT Exam ENT Exam: Mucous Membranes Moist - Respiratory Exam Respiratory Exam: Clear to PA & Lateral, NORMAL BREATHING PATTERN - Cardiovascular Exam Cardiovascular Exam: REGULAR RHYTHM, +S1, +S2 - GI/Abdominal Exam GI & Abdominal Exam: Normal Bowel Sounds - Rectal Exam Rectal Exam: Deferred Discharge Plan - Discharge Medications Prescriptions: Ciprofloxacin [Cipro] 500 mg PO BID #10 tab Metronidazole [Flagyl] 500 mg PO Q8H #15 tablet - Follow Up Plan Condition: STABLE Disposition: HOME/ ROUTINE Instructions: Ciprofloxacin (By mouth), Metronidazole (By mouth), Acute Abdominal Pain (DC) Additional Instructions: FOLLOW UP WITH DR VIVEROS IN HIS OFFICE IN A WEEK ----CALL OFFICE FOR APPOINTMENT FOLLOW UP WITH DR VIVEROS ABOUT YOUR LIVER ENZYME IN A WEEK CONTINUE PRILOSEC OTC DAILY NEW ANTIBIOTIC PRESCRIPTION: CIPRO 500 MG TWICE A DAY BY MOUTH FOR 5 DAYS FLAGYL 500 MG 2VERY 8 HOURS BY MOUTH FOR 5 DAYS IF SYMPTOMS RETURN SUCH ABDOMINAL PAIN /VOMITING CALL DR VIVEROS OR GO TO THE NEAREST HOSPITAL Referrals: Jose Alberto Viveros MD [Staff Provider] -
[2017-04-22] MEDS ORDERED: Potassium Chloride 20 mEq ER Tab PO ONE (12:00)
== END 2017-04-21 18:05 | disposition home or self-care (01) | DRG 445 ==
LOC: C.ER 12:42 → C.9E 20:33 → C.3T 20:55
PROVIDERS: ADMIT Internal Medicine; ATTEND Internal Medicine
PROC: 0FC98ZZ Extirpation of Matter from Common Bile Duct, Via Natural or Artificial Opening Endoscopic (ICD-10-PCS; principal; 2017-04-20 11:40)
PROC: 0DJ08ZZ Inspection of Upper Intestinal Tract, Via Natural or Artificial Opening Endoscopic (ICD-10-PCS; 2017-04-20 11:40)
DX: K80.30 Calculus of bile duct with cholangitis, unspecified, without obstruction (principal); M81.0 Age-related osteoporosis without current pathological fracture; K83.8 Other specified diseases of biliary tract; R74.0 Nonspecific elevation of levels of transaminase and lactic acid dehydrogenase [LDH]; Z90.49 Acquired absence of other specified parts of digestive tract

== ENCOUNTER 2018-10-13 10:04 | Outpatient (CLI) | payer MEDICARE, OTHER | END 2018-10-13 10:05 | disposition home or self-care (01) | LOC: C.USIC 10:04 | DX: I65.23 Occlusion and stenosis of bilateral carotid arteries (principal); R10.13 Epigastric pain ==

== ENCOUNTER 2018-10-22 09:48 | Outpatient (CLI) | payer MEDICARE, OTHER | END 2018-10-22 09:49 | disposition home or self-care (01) | LOC: C.CARD 09:48 ==